=== PATIENT | female | born 1970 | race Caucasian/White ===

== ENCOUNTER 2021-06-10 06:30 | Day surgery (SDC) | payer OTHER ==
[~2021-06-10] VITALS: Ht 165.1 cm; Wt 65.9 kg
--- NOTE | ~2021-06-10 | OR ---
[facility] [address] [place], [place] [address] Draft DATE OF OPERATION: 06/10/2021 SURGEON: Jessee Tomas MD PREOPERATIVE DIAGNOSIS: Colon screening. POSTOPERATIVE DIAGNOSIS: Normal colon to cecum with normal ileum. PROCEDURE: Total colonoscopy to cecum. ANESTHESIA: Intravenous sedation, fentanyl 125 mcg and Versed 7 mg. INDICATION: This 50-year-old white woman is a patient of Machelle Downing and is referred for screening colonoscopy. She has no prior history of colonoscopy and no symptoms of bleeding, diarrhea or constipation. She has no family history of colon cancer that she is aware of. She does have a maternal grandmother in her 90s, who did undergo colon resection thought likely for benign disease. She is admitted at this time to undergo colonoscopy. She understands the risks of bleeding, infection, and perforation. FINDINGS: The prep was excellent. Complete colonoscopy was undertaken to the cecum without question and intubation of the ileum was accomplished as well. There was no evidence of polyps, diverticular formation, colitis, or cancer. DESCRIPTION OF PROCEDURE: The patient was brought to the endoscopy suite and placed in lateral decubitus position, given intravenous sedation to the point of slurred speech and nystagmus. Digital rectal examination was normal. An Olympus video colonoscope was passed in the rectum and manipulated throughout the colon ultimately intubating the cecum itself. The ileocecal valve was normal. Scope was passed into the ilium without problem. It was normal as well. The scope was withdrawn and examination throughout showed no sign of polyps, diverticular formation, colitis, or cancer. Retroflex view was normal as well. The scope was removed and the patient was taken to the recovery room in good condition. PATIENT NAME: CLAUDE OLIVARES OPERATIVE REPORT DATE OF : 70 REPORT #: [id number] PHYSICIAN: JESSEE TOMAS MD PCP: MACHELLE DOWNING PAC REPORT IS CONFIDENTIAL AND NOT TO BE RELEASED WITHOUT AUTHORIZATION [facility] [address] [place], [place] [address] Draft CONCLUDING DIAGNOSIS: Normal colon and ileum. PLAN: Recommend a repeat colonoscopy in 10 years sooner if symptoms should develop include bleeding, diarrhea, or constipation. She will return to the ongoing care of Machelle Downing. MD RUDOLPH Danielson/MODL /[id number] cc: EDDIE Alan Copies: ~ PATIENT NAME: CLAUDE OLIVARES OPERATIVE REPORT DATE OF : 70 REPORT #: [id number] PHYSICIAN: JESSEE TOMAS MD PCP: MACHELLE DOWNING PAC REPORT IS CONFIDENTIAL AND NOT TO BE RELEASED WITHOUT AUTHORIZATION
[~2021-06-10 06:30] MED LIST: MONO-LINYAH1 EACH PO; PRESERVISION L1 EACH PO; PROAIR DIGIHAL90 MCG; PROBIOTIC1 EAC1 PO; SYNTHROID100 MCG PO; VENTOLIN HFA18 GM
--- NOTE | 2021-06-10 06:53 | NUR ---
PT WAS SWABBED FOR COVID 19
--- NOTE | 2021-06-10 08:32 | NUR ---
06/10/21 0832 Cecile Robb 0827- PT ARRIVES TO PACU AWAKE AND ORIENTED. PT REPORTS NO PAIN OR NAUSEA. RESP EVEN AND UNLABORED. OXYGEN SAT HIGH 90'S TO 100% ON 2L VIA NC. 0830- DR. TOMAS AT THE BEDSIDE TO TALK WITH THE PT. 0831- PT PASSING FLATUS. OXYGEN TITRATED OFF.
== END 2021-06-10 09:07 | disposition home or self-care (01) ==
LOC: OPS 06:30 → DS 06:30 → OPS 06:45
PROVIDERS: ATTEND Surgery
PROC: 0DJD8ZZ Inspection of Lower Intestinal Tract, Via Natural or Artificial Opening Endoscopic (ICD-10-PCS; principal; 2021-06-10 06:45)
DX: Z12.11 Encounter for screening for malignant neoplasm of colon (principal); E03.9 Hypothyroidism, unspecified; Z88.5 Allergy status to narcotic agent; Z88.2 Allergy status to sulfonamides; Z98.890 Other specified postprocedural states; Z20.822 Contact with and (suspected) exposure to COVID-19
CPT/HCPCS: 84703; 99153; G0500; J2250; J3010; J7121; U0003

== ENCOUNTER 2022-02-12 05:45 | Day surgery (SDC) | payer OTHER ==
[~2022-02-12] VITALS: Ht 165.1 cm; Wt 68.0 kg
[~2022-02-12 05:45] MED LIST changes: +PROGESTERONE100 MG PO
--- NOTE | 2022-02-12 09:17 | NUR ---
02/12/22 0917 Maureen Pardo 0852 PT ARRIVED IN PACU NON RESPONSIVE TO NOXIOUS STIMULI WITH OPA IN PLACE. 0910 AT BEDSIDE. NO CHANGE IN PT STATUS.
--- NOTE | 2022-02-12 10:05 | NUR ---
4841: PATIENT BACK IN DAY SURGERY ROOM FROM PACU. STATES "I FEEL LIKE I HAVE TO PUKE OR POOP." ATTEMPTED TO GET PATIENT OOB TO COMMODE. PATIENT UNABLE TO SIT UP ON OWN. PATIENT REPOSITIONED TO LEFT SIDE. VS CHECKED. IV SITE WNL. SCDs ON.
--- NOTE | 2022-02-12 10:24 | NUR ---
1005: PATIENT CONTINUES TO STATE "I HAVE TO PUKE OR POOP." INTERMITTENT DRY HEAVING. PATIENT REQUESTS TO GET OOB TO COMMODE. ALVARO EDUCATED ON NEED TO WAIT UNTIL MORE AWAKE AND STRONG ENOUGH TO SUPPORT SELF SITTING UP. RN AT BEDSIDE WITH PATIENT SINCE TRANSFERRING FROM PACU.
--- NOTE | 2022-02-12 10:28 | NUR ---
1015: PATIENT CONTINUES TO C/O NAUSEA WITH DRY HEAVING. RADIOTELEPHONE OPERATOR NOTIFIED. NEW ORDER RECEIVED. 1025: INAPSINE IV GIVEN TO PATIENT. PATIENT ASSISTED OOB AND TO COMMODE WITH HELP FROM 2 RNs. RN IN ROOM WITH PATIENT.
--- NOTE | 2022-02-12 10:52 | NUR ---
1050: PT HELPED OFF OF BSC AND BACK INTO STRETCHER. CONTS TO REPORT NAUSEA AND ABD GAS DISCOMFRT. POSITIONED ONTO LEFT SIDE. COOL WASH CLOTH TO FOREHEAD. NO CHANGE TO DRESSINGS FROM ARRIVAL. SCDS IN PLACE. EMESIS BAG AT THE BEDSIDE. PT TO CALL FOR ASSISTANCE, CASTRO LIGHT WITHIN REACH
--- NOTE | 2022-02-12 11:21 | NUR ---
1110: PT WAKES WHEN THIS RN ENTERS THE ROOM. REPORTS BEING ABLE TO SLEEP INTERMITTENTLY. VSS, RESP EVEN AND UNLABORED. NO CHANGE TO LAP SITES X3 FROM ARRIAL. CONTS TO REPORT GAS PRESSURE AND DISCOMFORT. SUBSIDING NAUSEA PER PT. LAILA SMALL SIPS OF SPRITE AT THIS TIME. NO NEEDS VOICED, CALL LIGHT WITHIN REACH
--- NOTE | 2022-02-12 12:08 | NUR ---
1130: PT WITH CALL FOR THIS RN. NOW REPORTING PRESSURE PAIN IN THE LOWER ABDOMEN WELL "KIDNEY PAIN" DANGELED AT THE BEDSIDE. LAILA WELL, DENIES DIZZINESS AND SOB. SUCCESSFUL FIRST POSTOP VOID, 100MLS. BACK TO STRETCHER WITH RN ASSISTANCE. BLADDER SCANNED AT THE BEDSIDE FOR 180-200MLS. DAVID ECKERT AT THE BEDSIDE. EXTRA LITER OR LR HUNG AND INFUSING. IV PAIN RX ADMINSTERED BY ASSEMBLER TRUCK TRAILER. PT WITH DIFFICULTY RATING PAIN LEVEL, 5/10. SECOND DOSE OF IV PAIN RX ADMINISTERED BY ASSEMBLER TRUCK TRAILER. PT REPORTS IMPROVING PRESSURE PAIN BUT CONTS TO C/O "KIDNEY PAIN". LAILA CRACKERS AND SPRITE. ORAL RX ADMINISTERED ORDERED, SEE PT EMAR. PT RESTS ON RIGHT SIDE, LIGHTS DIMMED FOR COMFORT. NO NEEDS AT THIS TIME. CALL LIGHT WITHIN REACH
[2022-02-12] MEDS ORDERED: MOTRIN IB200 MG PO (12:18)
[2022-02-12] MEDS ORDERED: TYLENOL EXTRA500 MG PO (12:19)
[2022-02-12] MEDS ORDERED: OXYCODONE HCL5 MG PO (12:20)
--- NOTE | 2022-02-12 13:32 | NUR ---
1255: PT WAKES WHEN THIS RN ENTERS THE ROOM. STATES "THE PAIN IS STILL THERE BUT THE MEDICINE MADE ME NOT CARE MUCH" VSS, RESP EVEN AND UNLABORED. PT WANTS TO TRY AND CONTINUE TO REST. NO CHANGE TO LAP SITES. CONTS TO DENY NAUSEA. CALL LIGHT WITHIN REACH
--- NOTE | 2022-02-12 14:44 | NUR ---
1432: TC PLACED TO MD SHIELA. REPORT PROVIDED AND NEW ORDER RECEIVED TO ADMINISTER 25MG MECLIZINE PO Q6 HOURS NEEDED FOR NAUSEA. SOUP ORDERED FOR PT. 1442: RX ADMINISTERED ORDERED, SEE PT EMAR. PT WITHOUT FURTHER NEEDS, CALL LIGHT WITHIN REACH
--- NOTE | 2022-02-12 15:48 | NUR ---
1530: PT WITH CALL FOR THIS RN. LAILA SOUP WELL. PAIN RX ADMINISTERED FOR MAINTENANCE REQUESTED BY PT, SEE PT EMAR. STATES DESIRE TO DC. THIS RN ASSISTED PT IN GETTING DRESSED. SL REMOVED WITH CATH TIP INTACT AND PRESSURE APPLIED TO SITE. VSS, RESP EVEN AND UNLABORED. 1540: WHEELED OFF OF UNIT IN WC BY THIS RN. DC INSTRUCTIONS PROVIDED TO PT AND PT'S . UNDERSTANDING VERBALIZED AND QUESTIONS DENIED. NO PHYSICAL S/S OF DISTRESS AT THIS TIME
--- NOTE | 2022-02-13 12:30 | OR ---
[facility] [address] [place], [place] [address] Signed DATE OF OPERATION: 02/12/2022 SURGEON: Denita Ceron MD BLUEPRINT DEVELOPER: Saul Multani MD. 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 POSTOPERATIVE DIAGNOSIS: Endometrial intraepithelial neoplasia, pending pathology. PROCEDURE: Total laparoscopic hysterectomy, bilateral salpingo-oophorectomy, and cystoscopy. ANESTHESIA: General ET. ESTIMATED BLOOD LOSS: 25 mL. DRAINS: Minaya catheter. INDICATIONS AND FINDINGS: The patient is a 51-year-old female who has been having abnormal bleeding for the last several years. Endometrial biopsy was done and simple hyperplasia only was found. She was treated with continuous progesterone and continued to have some irregular bleeding. Followup biopsy revealed a small focus of EIN. Because of this, it has been recommended she undergo hysterectomy. This is considered a very early precancerous lesion. At the time of surgery, exam under anesthesia revealed a normal-size uterus with no adnexal masses. At the time of hysterectomy, uterus was normal as were the tubes and ovaries. There was a small amount of scar tissue from her prior section. DESCRIPTION OF PROCEDURE: The patient was prepped and draped in the dorsal lithotomy position. A weighted speculum was placed and the anterior lip of the cervix was visualized and grasped with a single-tooth tenaculum. The cavity sounded to 7.5 cm. The endocervical canal was then Electronically Signed By: DENITA CERON MD 02/13/22 1230 PATIENT NAME: CLAUDE OLIVARES OPERATIVE REPORT DATE OF : 70 REPORT #: [id number] PHYSICIAN: DENITA CERON MD PCP: MACHELLE DOWNING PAC REPORT IS CONFIDENTIAL AND NOT TO BE RELEASED WITHOUT AUTHORIZATION [facility] [address] [place], [place] [address] Signed dilated and the VCare cannula was placed and the balloon inflated at the fundus. The tenaculum and speculum were removed. The cup was fitted over the cervix and a locking cap was fitted into place. Attention was then directed above. The infraumbilical area was injected with 0.5% Marcaine plain. An incision was made with a knife, and each layer serially elevated and incised until the fascia was opened and identified. Stay sutures of 0 Vicryl were placed. The peritoneum was opened bluntly and a Becky cannula was placed and tied into place. Placement of the scope confirmed proper positioning. Following this, the abdomen was inflated with carbon dioxide gas. When the abdomen was appropriately distended, the secondary ports were placed. These were placed laterally slightly below the level of the umbilicus. Each of these areas was transilluminated, injected with the Marcaine, incision made with a knife and the trocars placed under direct vision. Left-sided port was a 5 mm port and the right was the Veress needle with the expanding port. Following this, the LigaSure [place] device was used to serially coagulate and divide the left infundibulopelvic ligament. A 0 PDS Endoloop was then placed over the infundibulopelvic ligament for added hemostasis. The broad ligament was then serially coagulated and divided down to the level of the uterus. The round ligament was serially coagulated and divided and the anterior leaf of the peritoneum incised as was the posterior leaf. Uterine vessels were skeletonized and the uterine vessels were coagulated multiple times and divided. Further dissection was done anteriorly allowing the scar tissue to be divided and a partial bladder flap created. Following this, attention was directed to the right side. Again, the infundibulopelvic ligament was coagulated and divided. The PDS Endoloop was placed assuring hemostasis. The broad ligament was serially coagulated and divided down to the round ligament. This was coagulated and divided as well. Anterior leaf of the peritoneum was incised allowing for completion of the bladder flap. This was taken down very close to the uterus given her prior . The peritoneum was taken down posteriorly as well. The uterine vessels were then skeletonized and coagulated multiple times and divided. Further dissection was done posteriorly and anteriorly allowing the cup to be further visualized. The bladder was completely off the cervix anteriorly. At this point, it was felt that the specimen could be removed. The Sonicision device was used to separate the specimen from the vaginal cuff. It was begun posteriorly and wrapped around toward the left and anteriorly and again posteriorly and wrapped around on the right side. Following this, the specimen was retrieved intact vaginally. The vaginal canal was then packed with a glove with a wet lap in place to allow the pneumoperitoneum to be recreated. The abdomen was copiously irrigated and inspected. There were couple of superficial bleeding points on the bladder flap anteriorly toward the left and these were controlled with LigaSure device. There was no evidence of any ongoing bleeding. The vaginal cuff was then closed from the right uterosacral ligament to the left. This took the vaginal mucosa both posteriorly and anteriorly. It was run to the patient's left uterosacral ligament and then back to the center. Following this, pelvis appeared hemostatic. The procedure was terminated. The instruments removed from the abdomen after allowing as much CO2 as possible to escape. The fascial incision was Electronically Signed By: DENITA CERON MD 02/13/22 1230 PATIENT NAME: CLAUDE OLIVARES OPERATIVE REPORT DATE OF : 70 REPORT #: [id number] PHYSICIAN: DENITA CERON MD PCP: MACHELLE DOWNING PAC REPORT IS CONFIDENTIAL AND NOT TO BE RELEASED WITHOUT AUTHORIZATION [facility] [address] [place], [place] [address] Signed re-identified and closed with a running suture of 0 Vicryl. The skin incisions were closed with subcuticular sutures of 3-0 Vicryl Rapide. Attention was directed down below and the vaginal pack was removed. The Minaya catheter was removed and the bladder visualized with the 30-degree scope. There was no evidence of any bladder injury. Both of the ureteral orifices were identified. She had received IV fluorescein prior to cysto. After short period of time, both of the ureteral orifices were seen to spurt the fluorescein stained urine. Following this, the bladder was drained and the Minaya catheter replaced. The sponge and needle counts were correct. She tolerated the procedure well. She was taken to the recovery room in good condition. Denita Ceron MD PJW/MODL /[id number] cc: Saul Multani MD Copies: SAUL MULTANI MD ~ Electronically Signed By: DENITA CERON MD 02/13/22 1230 PATIENT NAME: CLAUDE OLIVARES OPERATIVE REPORT DATE OF : 70 REPORT #: [id number] PHYSICIAN: DENITA CERON MD PCP: MACHELLE DOWNING REPORT IS CONFIDENTIAL AND NOT TO BE RELEASED WITHOUT AUTHORIZATION
--- NOTE | 2022-02-18 16:12 | PATH ---
[facility] [address] [facility] [place], [place] [address] Signed SPECIMEN(S): A UTERUS, CERVIX, BILAT TUBES AND OVARIES SPECIMEN SOURCE: A. UTERUS, CERVIX, BILAT TUBES AND OVARIES CLINICAL HISTORY: Endometrial intraepithelial neoplasia; abnormal perimenopausal bleeding FINAL PATHOLOGIC DIAGNOSIS: Uterus, cervix, and bilateral fallopian tubes and ovaries, hysterectomy and bilateral salpingo-oophorectomy: - Endometrioid adenocarcinoma, FIGO grade 1, with the following features: - Tumor site: Endometrium. - Tumor size: 4 mm in greatest dimension. - Histologic type: Endometrioid carcinoma, NOS. - Histologic grade: FIGO grade 1. - Myometrial invasion: Not identified. - Adenomyosis: Present, involvement by carcinoma cannot be definitively determined. - Uterine serosal involvement: Not identified. - Cervical stromal involvement: Not identified. - Other tissue/organ involvement: Not identified. - Peritoneal/ascitic fluid: Not submitted/unknown. - Lymphovascular invasion: Not identified. - Margin status: All margins negative for invasive carcinoma. - Regional lymph node status: Not applicable (no regional lymph nodes submitted or found). - Additional findings: - Cervix: No histopathologic abnormality. - Myometrium: Extensive adenomyosis, leiomyoma (6 mm). - Right ovary: No histopathologic abnormality. - Left ovary: Cystic follicles. - Fallopian tubes: Paratubal cysts. - Pathologic Stage Classification (pNTM, AJCC 8th ed.): pT1a pN not assigned - FIGO Stage: IA. COMMENT: The endomyometrial interface is undulating and is in continuum with underlying adenomyosis. Cribriform glands are at this undulating interface, but cannot be PATIENT NAME: CLAUDE OLIVARES PATHOLOGY DATE OF : 70 REPORT #: [id number] PHYSICIAN: SERAFIN PATHOLOGY PCP: MACHELLE DOWNING PAC REPORT IS CONFIDENTIAL AND NOT TO BE RELEASED WITHOUT AUTHORIZATION [facility] [address] [place], [place] [address] Signed definitively classified as superficial myometrial invasion or involvement of superficial adenomyosis. Mismatch repair (MMR) testing by IHC has been ordered and will be reported in an addendum. As part of [email or web address] Quality Improvement Program, this case was reviewed by another member of our pathology staff. A diagnostic alert was initiated by Dr. Morales on 02/18/2022. NAL:BS:cml:C1NR MICROSCOPIC EXAMINATION: Histologic sections of all submitted blocks are examined by light microscopy. These findings, together with the gross examination, support the pathologic diagnosis. GROSS DESCRIPTION: The specimen, labeled "SK, A," and designated on the requisition "uterus, cervix, bilateral fallopian tubes + ovaries, endometrial intraepithelial neoplasm, abnormal perimenopausal bleeding," is received in formalin and consists of a uterus with attached cervix and bilateral adnexa. The posterior cervical barrel is inked black and the anterior cervical barrel is inked blue. The right adnexa weighs 8.9 g and is comprised of an intact ovary and intact fimbriated fallopian tube segment. The fallopian tube segment is resendiz-white purple, 7.2 cm long, 0.7 cm diameter, has a patent lumen, and a copious amount of clear fluid-filled to resendiz purulent fluid-filled, smooth inner walled, paratubal cystic structures grossly 0.1 up to 0.5 cm in greatest dimension. The ovary is resendiz, smooth to finely wrinkled, 3.0 x 1.4 x 0.8 cm, and the ovarian stroma is grossly unremarkable. The left adnexa weighs 6.1 g and is comprised of an intact ovary and intact fimbriated fallopian tube segment. The fallopian tube is 6.7 cm long, 0.7 cm in diameter, purple, has a patent lumen, and multiple clear fluid-filled, smooth inner walled, paratubal cystic structures from less than 0.1 up to 0.5 cm in greatest dimension. The ovary is resendiz, partially cystic, markedly wrinkled, 2.5 x 1.8 x 0.7 cm, and the ovarian stroma contains multiple clear fluid to brown fluid filled, smooth inner walled cystic structures from 0.2 up to 1.2 cm in greatest dimension. The remaining ovarian stroma is grossly unremarkable. The uterus with attached cervix weighs 109.2 g and measures 9.1 x 5.6 x 5.2 cm. The uterine serosa is resendiz, smooth, glistening. The ectocervical tissue is PATIENT NAME: CLAUDE OLIVARES PATHOLOGY DATE OF : 70 REPORT #: [id number] PHYSICIAN: SERAFIN ROA PCP: MACHELLE DOWNING PAC REPORT IS CONFIDENTIAL AND NOT TO BE RELEASED WITHOUT AUTHORIZATION [address] [address] Signed resendiz-white to purple, smooth, and occupies a 2.8 x 2.8 cm area. The external os is oval, patent, and 1.0 cm in diameter. The internal os is patent and the cervical stroma is grossly unremarkable. The triangular endometrial cavity measures 4.2 x 2.3 cm. The resendiz to dark red endometrium is up to 0.2 cm thick without a discrete mass/lesion. The resendiz, rubbery myometrium is up to 2.5 cm thick and one well-circumscribed, resendiz-white, 0.6 cm in greatest dimension rubbery nodule within the posterior myometrium. The nodule has a whorled, sinclair-white cut surface. An additional discrete mass/lesion is not identified. Solution Professional sections are submitted as follows: A1-A2 right adnexa including fallopian tube fimbria entirely A3-A4 left adnexa including fallopian tube fimbria entirely A5 anterior cervix A6 posterior cervix A7-A8 anterior uterine wall A9-A14 remainder of anterior endomyometrium A15-A16 posterior uterine wall; A15 contains the myometrial nodule A17-A22 remainder of posterior endomyometrium, 5 AI (under the direct supervision of a pathologist) The Gross Description was prepared using a voice recognition system. The report was reviewed for accuracy; however, sound-alike word errors, addition and/or deletions may occur. If there is any question about this report, please contact Client Services. PERFORMING LABORATORY: The technical component was performed by [email or web address], [address] [place] [id number] (CLIA# [id number]). [email or web address], [address] [place] [id number] (CLIA# [id number]). Diagnostician: Margaret Morales MD Pathologist Electronically Signed 02/18/2022 Copies: PATIENT NAME: CLAUDE OLIVARES PATHOLOGY DATE OF : 70 REPORT #: [id number] PHYSICIAN: SERAFIN PATHOLOGY PCP: MACHELLE DOWNING PAC REPORT IS CONFIDENTIAL AND NOT TO BE RELEASED WITHOUT AUTHORIZATION [address] [place], [place] [address] Signed ~ PATIENT NAME: CLAUDE OLIVARES PATHOLOGY DATE OF : 70 REPORT #: [id number] PHYSICIAN: SERAFIN PATHOLOGY PCP: MACHELLE DOWNING PAC REPORT IS CONFIDENTIAL AND NOT TO BE RELEASED WITHOUT AUTHORIZATION
== END 2022-02-12 15:40 | disposition home or self-care (01) ==
LOC: DS 05:45
PROVIDERS: ATTEND Obstetrics & Gynecology
PROC: 0UT74ZZ Resection of Bilateral Fallopian Tubes, Percutaneous Endoscopic Approach (ICD-10-PCS; 2022-02-12)
PROC: 0UT94ZZ Resection of Uterus, Percutaneous Endoscopic Approach (ICD-10-PCS; principal; 2022-02-12 07:00)
PROC: 0UT24ZZ Resection of Bilateral Ovaries, Percutaneous Endoscopic Approach (ICD-10-PCS; 2022-02-12 07:00)
DX: N85.02 Endometrial intraepithelial neoplasia [EIN] (principal); N92.4 Excessive bleeding in the premenopausal period; Z88.5 Allergy status to narcotic agent; Z88.2 Allergy status to sulfonamides; E03.9 Hypothyroidism, unspecified; J45.20 Mild intermittent asthma, uncomplicated; F17.200 Nicotine dependence, unspecified, uncomplicated
CPT/HCPCS: 00840; A9270; J0131; J0694; J1100; J1644; J1790; J1885; J1940; J2001; J2250; J2405; J2704; J2765; J3010; J7121

== ENCOUNTER 2025-07-21 07:00 | Day surgery (SDC) | payer OTHER ==
[~2025-07-21] VITALS: Ht 165.1 cm; Wt 61.0 kg
[~2025-07-21 07:00] MED LIST changes: +CEFAZOLIN SODIUM 2 GM in SODIUM CHLORIDE 0.9% 100 ML IV SCH; +DOTTI1 EAC4 TD; +IBLOOD GLUCOSE TEST STRIP 1 EA TEST VI PRN; +LACTATED RINGER'S 1,000 ML IV SCH; +LIDOCAINE HCL 1% 5 ML SDV INJ ONE; +MOTRIN IB200 MG PO; +OXYCODONE HCL5 MG PO; +TYLENOL EXTRA500 MG PO
[2025-07-21 07:23] VITALS: BP 128/60
[2025-07-21] MEDS ORDERED: MULTIVITAMIN W1 EAC2 PO (07:26)
[2025-07-21] MEDS ORDERED: LIDOCAINE HCL 2% 20 MG/ML VIAL INJ ONE (08:15)
[2025-07-21] MEDS ORDERED: Ropivacaine HCl 0.5% 30 ML VIAL ONE (08:15)
[2025-07-21 09:53] VITALS: BP 118/63
[2025-07-21] MEDS ORDERED: TRAMADOL HCL50 MG PO (09:55)
[2025-07-21] MEDS ORDERED: KETOROLAC TROMETHAMINE 15 MG/ML VIAL IV PRN (10:00)
[2025-07-21] MEDS ORDERED: TRAMADOL HCL 50 MG TAB PO PRN (10:00)
--- NOTE | 2025-07-21 10:17 | NUR ---
0953: PATIENT BACK IN DAY SURGERY ROOM FROM OR. PATIENT WIDE AWAKE. VS CHECKED. DENIES PAIN. DIGITAL BLOCK TO RIGHT MIDDLE FINGER. RIGHT MIDDLE FINGER NUMB. CAP REFILL TO RIGHT FINGERS WNL. RIGHT FINGERS SLIGHTLY COOL, BUT PINK. 0959: IV DC'D WNL. TIP INTACT. DRESSING APPLIED. STAND BY ASSIST WHILE PATIENT GOT OOB. PATIENT GETTING DRESSED INDEPENDENTLY. 1007: DISCHARGE INSTRUCTIONS GIVEN TO PATIENT. OFFERED PATIENT WHEELCHAIR RIDE OUT. PATIENT DECLINED. PATIENT DISCHARGED TO HOME AMBULATORY.
--- NOTE | 2025-07-24 08:44 | OR ---
[facility] [address] [place], [place] [address] Signed DATE OF OPERATION: 07/21/2025 SURGEON: Hiwot Booth MD PREOPERATIVE DIAGNOSIS: Inclusion cyst, right long finger. POSTOPERATIVE DIAGNOSIS: Inclusion cyst, right long finger. PROCEDURE PERFORMED: Excision of inclusion cyst, right long finger. TRANSPORTATION ANALYST: None. ANESTHESIA: MAC. TOURNIQUET TIME: 10 minutes. BRIEF HISTORY: Claude is a 54-year-old female with a hard lump on the volar surface of her right long finger. Risks and benefits of operative treatment discussed with her and she elected to proceed. DESCRIPTION OF PROCEDURE: Once consent was obtained she was taken to the operating room. After adequate anesthesia, she was left on the day surgery bed and hand table was brought in. The hand was prepped and draped in a standard sterile fashion. A finger tourniquet was fashioned out of the glove tip and this was rolled proximal to the cyst. The cyst was excised using an elliptical transverse incision. This was carried through skin, subcutaneous tissue. We did go down and attached to the volar flexor tendon sheath. It was carefully dissected free of this. The skin was then undermined around to allow a good closure with no tension. The wound was copiously irrigated with normal saline, closed with 3-0 nylon. The wound was then dressed with Adaptic gauze and 1 inch Franck. She tolerated the procedure well. All sponge, needle, and instrument counts were correct. Electronically Signed By: HIWOT BOOTH MD 07/24/25 0844 PATIENT NAME: CLAUDE OLIVARES OPERATIVE REPORT DATE OF : 70 REPORT #: [id number] PHYSICIAN: HIWOT BOOTH MD PCP: MACHELLE DOWNING PAC REPORT IS CONFIDENTIAL AND NOT TO BE RELEASED WITHOUT AUTHORIZATION [address] [address] Signed Hiwot Booth MD /[facility] /[id number] Copies: ~ Electronically Signed By: HIWOT BOOTH MD 07/24/25 0844 PATIENT NAME: CLAUDE OLIVARES OPERATIVE REPORT DATE OF : 70 REPORT #: [id number] PHYSICIAN: HIWOT BOOTH MD PCP: MACHELLE DOWNING PAC REPORT IS CONFIDENTIAL AND NOT TO BE RELEASED WITHOUT AUTHORIZATION
== END 2025-07-21 10:05 | disposition home or self-care (01) ==
LOC: DS 07:00
PROVIDERS: ATTEND Specialist
PROC: 0LB70ZZ Excision of Right Hand Tendon, Open Approach (ICD-10-PCS; principal; 2025-07-21 08:30)
DX: L72.0 Epidermal cyst (principal); E03.9 Hypothyroidism, unspecified; Z88.5 Allergy status to narcotic agent; Z88.8 Allergy status to other drugs, medicaments and biological substances
CPT/HCPCS: 01810; J0688; J2704; J2795; J7121